=== PATIENT | female | born 1965 | race Caucasian/White ===

== ENCOUNTER 2017-02-15 14:03 | Emergency (ER) | payer BC ==
[2017-02-15 15:44] VITALS: BP 115/84
--- NOTE | 2017-02-15 15:44 | UC ---
Lower Extremity/Ankle HPI - HPI Summary HPI Summary: complaint of right foot pain that started yesterday after dropping a large umbrella pole onto her right foot 2nd ,3rd, 4th metatarsal and bottom of foot apply ice and ibuprofen and rested her foot today constant aching non radiating pain ambulating increases the pain - History of Current Complaint Chief Complaint: UCLowerExtremity Stated Complaint: RIGHT FOOT PAIN Time Seen by Provider: 02/15/17 15:23 Hx Obtained From: Patient Hx Last Menstrual Period: NONE Able to Bear Weight: Yes - Allergies/Home Medications Allergies/Adverse Reactions: Allergies Allergy/AdvReac Type Severity Reaction Status Date / Time No Known Allergies Allergy Verified 02/15/17 15:34 Home Medications: Home Medications Cholecalciferol TAB* [Vitamin D TAB*] 400 unit PO DAILY 02/15/17 [History Confirmed 02/15/17] Ibuprofen TAB* [Advil TAB*] 400 mg PO Q6H PRN 02/15/17 [History Confirmed ] PMH/Surg Hx/FS Hx/Imm Hx Previously Healthy: Yes Cardiovascular History Of: Denies: Pacemaker/ICD - Surgical History Surgical History: Yes Surgery Procedure, Year, and Place: choleCYSTECTOMY. splenectomy. OVARIAN CYST REMOVED - Family History Known Family History: Negative: Cardiac Disease, Hypertension, Diabetes - Social History Occupation: Employed Full-time Lives: Alone Alcohol Use: None Substance Use Type: None Smoking Status (MU): Never Smoked Tobacco Review of Systems Constitutional: Negative Skin: Negative Eyes: Negative ENT: Negative Respiratory: Negative Cardiovascular: Negative Gastrointestinal: Negative Genitourinary: Negative Motor: Negative Neurovascular: Negative Musculoskeletal: Other: - right foot pain Neurological: Negative Psychological: Negative All Other Systems Reviewed And Are Negative: Yes Physical Exam Triage Information Reviewed: Yes Appearance: No Pain Distress, Well-Nourished Vital Signs: Initial Vital Signs Temp 99.2 F 02/15/17 15:27 Pulse 94 02/15/17 15:27 Resp 12 02/15/17 15:27 BP 115/84 02/15/17 15:27 Pulse Ox 100 02/15/17 15:27 Vital Signs Reviewed: Yes Eyes: Positive: Conjunctiva Clear ENT: Positive: Pharynx normal, TMs normal Neck: Positive: No Lymphadenopathy Respiratory: Positive: Lungs clear, Normal breath sounds, No respiratory distress, No accessory muscle use Cardiovascular: Positive: RRR, No Murmur, Pulses Normal Abdomen Description: Positive: Nontender, Soft Bowel Sounds: Positive: Present Musculoskeletal: Positive: Other: - RLE-No bony deformities, ecchymosis and tenderness over 2,3,4th metatarsals, No pes planus. Full ROM dorsi/plantar flexion, inversion & eversion. [place] test negative. Neurological Exam: Normal Psychological Exam: Normal Skin Exam: Normal Lower Extremity Course/Dx - Differential Dx/Diagnosis Differential Diagnosis/HQI/PQRI: Contusion, Fracture (Closed) Provider Diagnoses: right foot contusion Discharge - Discharge Plan Condition: Stable Disposition: HOME Patient Education Materials: Foot Contusion (ED), RICE Therapy (ED) Referrals: Ok Hunter DO [Primary Care Provider] - Additional Instructions: Increase fluids and rest Take acetaminophen or ibuprofen for fever or pain Please review your discharge instructions. If your symptoms do not improve please call your primary care provider or return to urgent care.
--- NOTE | 2017-02-15 16:11 | RAD ---
HISTORY: Right foot trauma COMPARISONS: None VIEWS: 2, Frontal and lateral views of the right foot FINDINGS: BONE DENSITY: Normal. BONES: There is no displaced fracture. JOINTS: There is no arthropathy. ALIGNMENT: There is no dislocation. SOFT TISSUES: Unremarkable. OTHER FINDINGS: None. IMPRESSION: NO ACUTE OSSEOUS INJURY. IF SYMPTOMS PERSIST, RECOMMEND REPEAT IMAGING.
== END 2017-02-15 16:23 | disposition home or self-care (01) ==
LOC: UCCORT 14:03
DX: S90.31XA Contusion of right foot, initial encounter (principal); W20.8XXA Other cause of strike by thrown, projected or falling object, initial encounter; Y93.9 Activity, unspecified; Y92.9 Unspecified place or not applicable; Z90.49 Acquired absence of other specified parts of digestive tract; Z90.81 Acquired absence of spleen
CPT/HCPCS: 99201; G0463

== ENCOUNTER 2019-08-19 11:10 | Emergency (ER) | payer BC ==
--- OUTSIDE RECORDS SUMMARY | 2019-08-19 11:21 | XMS REPORT | Continuity of Care Document ---
:1965 External Reference #:[id number] Author Name Abdelrahman Frank M.D. Address [address] [place] [id number] Care Team Providers Name Role Phone Rebecca Roa DR. 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 Immunizations Description No Information Available Vital Signs Date Vital Result Comment 08/01/2019 8:34am BP Systolic 110 mmHg BP Diastolic 80 mmHg Height 62.5 inches 5'2.50" Weight 123.00 lb BMI (Body Mass Index) 22.1 kg/m2 07/26/2018 8:57am BP Systolic 118 mmHg BP Diastolic 82 mmHg Height 62.5 inches 5'2.50" Weight 120.00 lb BMI (Body Mass Index) 21.6 kg/m2 Results Test Date Facility Test Result H/L Range Note Laboratory test 08/01/2019 [facility] Thinprep W/Reflex <pending> finding HR HPV If Asc-US Procedures Description No Information Available Medical Devices Description No Information Available Encounters Description No Information Available Assessments Date Code Description Provider 08/01/2019 Z01.419 Encounter for gynecological examination Abdelrahman Frank M.D. (general) (routine) without abnormal findings 08/01/2019 Z12.12 Encounter for screening for malignant Abdelrahman Frank M.D. neoplasm of rectum Plan of Treatment Future Appointment(s):08/06/2020 9:00 am - Abdelrahman Frank M.D. at [facility]/01/2019 - Abdelrahman Frank M.D.Z01.419 Encounter for gynecological examination (general) (routine) without abnormal findingsComments:Risks, benefits & alternatives fully discussed with patient regarding treatment plan/options -(Test scheduled/recommended and any medications prescribed). Patient fully understood and accepts. All questions answered to the best of my ability.Z12.12 Encounter for screening for malignant neoplasm of rectumComments: Importance of self breast exam. Explained and taught. Functional Status Description No Information Available Mental Status Description No Information Available Referrals Description No Information Available
[2019-08-19 11:58] VITALS: BP 152/84
--- NOTE | 2019-08-19 12:48 | UC ---
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 Last tetanus > 10 years ago. - History Of Current Complaint Chief Complaint: UCLaceration Stated Complaint: LAC ON LT THUMB Time Seen by Provider: 08/19/19 12:41 Hx Obtained From: Patient Hx Last Menstrual Period: NONE Laceration Location: Finger - left thumb Mechanism Of Injury: Sharp Trauma Onset/Duration: Sudden Onset Severity: Mild Pain Intensity: 2 Aggravating Factors: Movement Related History: Dominant Hand Right - Allergies/Home Medications Allergies/Adverse Reactions: Allergies Allergy/AdvReac Type Severity Reaction Status Date / Time No Known Allergies Allergy Verified 08/19/19 11:51 PMH/Surg Hx/FS Hx/Imm Hx Previously Healthy: Yes - Surgical History Surgical History: Yes Surgery Procedure, Year, and Place: choleCYSTECTOMY. splenectomy. OVARIAN CYST REMOVED - Family History Known Family History: Positive: Non-Contributory Negative: Cardiac Disease, Hypertension, Diabetes - Social History Occupation: Employed Full-time Lives: With Family Alcohol Use: None Substance Use Type: None Smoking Status (MU): Never Smoked Tobacco Review of Systems All Other Systems Reviewed And Are Negative: Yes Constitutional: Positive: Negative Skin: Positive: Negative Eyes: Positive: Negative ENT: Positive: Negative Respiratory: Positive: Negative Cardiovascular: Positive: Negative Gastrointestinal: Positive: Other - hx polyposis, uses aspirin Musculoskeletal: Positive: Negative Neurological: Positive: Negative Psychological: Positive: Negative Is Patient Immunocompromised?: No Physical Exam Triage Information Reviewed: Yes Appearance: Well-Appearing Vital Signs: Initial Vital Signs Temp 98.5 F 08/19/19 11:53 Pulse 80 08/19/19 11:53 Resp 16 08/19/19 11:53 BP 152/84 08/19/19 11:53 Pulse Ox 100 08/19/19 11:53 Vital Signs Reviewed: Yes Respiratory: Positive: Lungs clear, Normal breath sounds Cardiovascular: Positive: RRR, No Murmur Neurological Exam: Normal Psychological Exam: Normal Skin Exam: Normal Laceration Repair - Laceration Repair 1 Description: Irregular - flap laceration, nearly complete avulsion ddistal medial thumb on palmar surface just adjacent to nail. Modified For Repair: No Closure Material: Skin Adhesive, SteriStrips Laceration Course/Dx - Course/Dx Course Of Treatment: adhesive and steristrips, dressing applied, tetanus booster. - Differential Dx - Laceration/Wound Differental Diagnoses: Laceration - Diagnosis Provider Diagnosis: Laceration of left thumb Discharge ED - Sign-Out/Discharge Documenting (check all that apply): Patient Departure All imaging exams completed and their final reports reviewed: No Studies - Discharge Plan Condition: Good Disposition: HOME Patient Education Materials: Finger Laceration (ED), Diphtheria/Acellular Pertussis/Tetanus Vaccine (By injection) Referrals: Rebecca Roa MD [Primary Care Provider] - Additional Instructions: You have had a [id number] (BOOSTRIX) booster today--good for 10 years. Keep the wound as clean and dry as possible, peeling the steristrips away as they become soiled. Risk of infection is low; apply topical ointment following removal of the steristrips as needed. - Billing Disposition and Condition Condition: GOOD Disposition: Home
[2019-08-19] MEDS ORDERED: Tetan/Diph/Pertus SYR(Tdap)* 0.5 ML SYR(BOOSTRIX) use SYR contains LATEX IM ONE (12:49)
== END 2019-08-19 13:20 | disposition home or self-care (01) ==
LOC: UCCORT 11:10
DX: S61.012A Laceration without foreign body of left thumb without damage to nail, initial encounter (principal); W26.8XXA Contact with other sharp object(s), not elsewhere classified, initial encounter; Y92.9 Unspecified place or not applicable
CPT/HCPCS: 12001; 90715; 99211; G0463